=== PATIENT | male | born 1965 | race Caucasian/White ===

== ENCOUNTER 2021-10-07 08:35 | Outpatient (CLI) | payer BC, SELFPAY ==
--- NOTE | 2021-10-07 | ECG_ITS ---
Measurements Intervals [place] Rate: 62 P: 31 OK: 219 QRS: 17 QRSD: 109 T: 56 QT: 392 QTc: 398 Interpretive Statements SINUS RHYTHM WITH FIRST DEGREE AV BLOCK OTHERWISE WITHIN NORMAL LIMITS NO PREVIOUS ECG AVAILABLE FOR COMPARISON Electronically Signed On 10-08-2021 16:16:39 CDT by Fausto Simon M.D.
== END 2021-10-07 08:36 | disposition home or self-care (01) ==
LOC: ANHCARD 08:43
PROVIDERS: PCP Nurse Practitioner; Visit Provider Nurse Practitioner
DX: R01.1 Cardiac murmur, unspecified (principal); R03.0 Elevated blood-pressure reading, without diagnosis of hypertension
CPT/HCPCS: 93005